=== PATIENT | male | born 1970 ===

== ENCOUNTER 2016-09-25 20:54 | Emergency (ER) | payer MEDICAID ==
[2016-09-25 20:55] VITALS: BMI 24.3
[2016-09-25 21:12] VITALS: BP 121/72; PULSE 88; RESP 18; TEMP 98.5; O2SAT 100
--- NOTE | 2016-09-25 23:07 | ED PDOC ---
HPI: Psych/Substance Abuse Time Seen by Provider: 09/25/16 23:05 Chief Complaint (Nursing): Psychiatric Evaluation Chief Complaint (Provider): anxiety History Per: Patient (45 y/o male homeless admits to provider that he needs a place for detention today. States shelters are full and he did not want to be incarcerated again. Denies any current psychiatric complainst at present. ) Past Medical History Reviewed: Historical Data, Nursing Documentation, Vital Signs Vital Signs: Last Vital Signs Temp 98.5 F 09/25/16 21:10 Pulse 88 09/25/16 21:10 Resp 18 09/25/16 21:10 BP 121/72 09/25/16 21:10 Pulse Ox 100 09/25/16 21:10 - Medical History PMH: Anemia, Anxiety, Bipolar Disorder, CHF, Depression, Hepatitis (C), Personality Disorder, Schizophrenia, Seizures (Epileptic) Denies: Alzheimer's Disease, Arthritis, Dementia, Diabetes, Fractures, HIV, HTN, Malignancy, Migraine, Multiple Sclerosis, Osteoporosis, Paranoia, Parkinson 's Disease, Depression, Post Traumatic Stress Disorder, Chronic Kidney Disease, Rheumatoid Arthritis, Sickle Cell Disease, Sexually Transmitted Disease, TIA - Surgical History Surgical History: Comment Only: CABG (?) - Family History Family History: States: Unknown Family Hx - Immunization History Hx Tetanus Toxoid Vaccination: Yes (02/14/13) Hx Influenza Vaccination: No Hx Pneumococcal Vaccination: No - Home Medications Home Medications: Ambulatory Orders Medication Instructions Recorded Multivitamin [Multi-Vitamin Daily] 1 tab PO DAILY 06/19/16 Amoxicillin/Clavulanate [Augmentin 1 tab PO BID #14 tab 07/04/16 875 MG-125 MG Tab] Aspirin [Aspirin Chewable] 81 mg PO DAILY #30 chew 07/04/16 Benztropine [Cogentin] 1 mg PO BID #60 tab 07/04/16 Furosemide [Lasix] 40 mg PO DAILY #30 tab 07/04/16 Gabapentin [Neurontin] 100 mg PO TID #90 cap 07/04/16 Metoprolol Tartrate [Lopressor] 25 mg PO BID #60 tab 07/04/16 QUEtiapine [SEROquel] 150 mg PO HS #30 tab 07/04/16 Sertraline [Zoloft] 50 mg PO DAILY #30 tab 07/04/16 hydrOXYzine HCl [Atarax] 50 mg PO QID #120 tab 07/04/16 levETIRAcetam [Keppra] 500 mg PO BID #60 tab 07/04/16 traZODone [Desyrel] 100 mg PO HS #30 tab 07/04/16 Cephalexin [Keflex] 500 mg PO BID #10 capsule 07/05/16 Gabapentin [Neurontin] 100 mg PO BID #60 capsule 09/03/16 Sertraline [Zoloft] 50 mg PO DAILY #30 tab 09/03/16 levETIRAcetam [Keppra] 500 mg PO BID #60 tab 09/03/16 traZODone [Desyrel] 100 mg PO HS #30 tab 09/03/16 - Allergies Allergies/Adverse Reactions: Allergies Allergy/AdvReac Type Severity Reaction Status Date / Time haloperidol [From Haldol] Allergy REDNESS Verified 03/12/16 00:13 haloperidol lactate Allergy REDNESS Verified 03/12/16 00:13 [From Haldol] turkey Allergy red Uncoded 03/12/16 00:13 blotches Review of Systems ROS Statement: Except As Marked, All Systems Reviewed And Found Negative Physical Exam - Reviewed Nursing Documentation Reviewed: Yes Vital Signs Reviewed: Yes - Physical Exam Appears: Positive for: Well, Non-toxic, No Acute Distress Head Exam: Positive for: ATRAUMATIC, NORMAL INSPECTION, NORMOCEPHALIC Skin: Positive for: Normal Color, Warm, DRY Eye Exam: Positive for: EOMI, Normal appearance, PERRL ENT: Positive for: Normal ENT Inspection Neck: Positive for: Normal, Painless ROM Cardiovascular/Chest: Positive for: Regular Rate, Rhythm Respiratory: Positive for: CNT, Normal Breath Sounds Gastrointestinal/Abdominal: Positive for: Normal Exam, Bowel Sounds, Soft Back: Positive for: Normal Inspection Extremity: Positive for: Normal ROM Neurologic/Psych: Positive for: Alert, Oriented - ECG O2 Sat by Pulse Oximetry: 100 Disposition - Clinical Impression Clinical Impression: Encounter for medical screening examination - Patient ED Disposition Is Patient to be Admitted: No - Disposition Disposition: Routine/Home Disposition Time: 23:07 Condition: FAIR Instructions: Normal Exam (ED)
== END 2016-09-26 06:03 | disposition home or self-care (01) ==
LOC: H.ER 20:54
DX: F41.9 Anxiety disorder, unspecified (principal); F31.9 Bipolar disorder, unspecified; F20.9 Schizophrenia, unspecified; G40.909 Epilepsy, unspecified, not intractable, without status epilepticus; Z79.82 Long term (current) use of aspirin; Z95.1 Presence of aortocoronary bypass graft